=== PATIENT | male | born 1940 ===

== ENCOUNTER 2017-07-24 08:43 | Day surgery (SDC) | payer MEDICAID ==
[2017-07-11 12:10] VITALS: BMI 26.6
[~2017-07-24 08:43] MED LIST: Carbachol 0.01% IO ONE; Ciprofloxacin 0.3% OPTH SOLN OS SCH; Cyclopentolate 1% Opth (2 ml) OS SCH; Flurbiprofen 0.03% Opht SOLN OS SCH; Lactated Ringer's 500 ML IV ONE; Phenylephrine 2.5% Opht Soln OS SCH; Tropicamide 1% Opht SOLUTION OS SCH
[2017-07-24] MEDS ORDERED: Lactated Ringer's 500 ML IV ONE (09:40)
[2017-07-24] MEDS: Lidocaine 2% Inj (20ml) ONE ×2 (12:24→13:14)
[2017-07-24] MEDS: Tobramycin/Dexamethasone (Tobradex) Opth Sol (2.5 ml) ONE ×2 (12:25→13:20)
[2017-07-24] MEDS: Hyaluronidase Human, Recombi 150 U/ML VIAL ONE ×2 (12:25→13:14)
[2017-07-24] MEDS: Chondroitin/Hyaluronate Opth Syringe KIT (0.55 ml-0.5 ml) IO ONE ×2 (12:25→13:20)
[2017-07-24] MEDS: Tetracaine 0.5% Ophth (OR ONLY) ONE ×2 (12:26→13:20)
[2017-07-24] MEDS: Povidone Iodine Ophthalmic 5% Soln ONE ×2 (12:26→13:13)
[2017-07-24] MEDS: Tobramycin/Dexamethasone OPHT OINT ONE ×2 (12:27→13:20)
[2017-07-24] MEDS ORDERED: Lidocaine Hydrochloride 5 ML INJ ONE (12:57)
[2017-07-24] MEDS ORDERED: Propofol 10 mg/ml Inj (20 ML) ONE (12:57)
[2017-07-24 14:18] VITALS: O2SAT 98
[2017-07-24 14:29] VITALS: BP 171/76; PULSE 63; RESP 14; TEMP 98.1
--- NOTE | 2017-07-30 07:45 | OP ---
PROCEDURE DATE: 07/24/2017 PREOPERATIVE DIAGNOSIS: Mature cataract of the left eye. POSTOPERATIVE DIAGNOSIS: Mature cataract of the left eye. OPERATIVE PROCEDURE: Cataract extraction with implant and use of Trypan blue dye. ANESTHESIA TYPE: Local, standby. COMPLICATIONS: None. PROCEDURE: Local anesthesia was achieved using a mixture of 1% lidocaine and Amphadase. The patient was then prepped and draped in the usual sterile fashion for ophthalmic surgery. Betadine drops were placed into the eye. A lid speculum was used and a sideport incision was made using a 15 degree blade. Trypan Blue dye was used to stain the anterior capsule. Viscoelastic was used to fill the anterior chamber and a 2.7 millimeter slit blade was used to create a surgical opening. Additional viscoelastic was placed into the eye and a capsulorrhexis was performed. Hydrodissection and delineation were then carried out. Phacoemulsification of the nucleus was performed with ease and cortical cleanup was achieved without difficulty. The capsular bag was refilled using viscoelastic and a posterior chamber lens was inserted through the existing wound and placed into the capsular bag and easily centered. All viscoelastic was then aspirated from the eye and Miochol was instilled for good symmetric pupillary constriction. The sideport wound was hydrated as necessary and a good watertight closure was observed at the conclusion of the case. A TobraDex soaked collagen shield was then placed over the eye. The lid speculum was removed. TobraDex ointment was placed onto the eye and a patch and shield were placed. The patient tolerated the procedure well. Alvaro Marshall MD
== END 2017-07-24 14:35 | disposition home or self-care (01) ==
LOC: C.SDS 08:43
PROVIDERS: ATTEND Ophthalmology
DX: H26.8 Other specified cataract (principal); I10 Essential (primary) hypertension; N40.0 Benign prostatic hyperplasia without lower urinary tract symptoms; Z79.899 Other long term (current) drug therapy
CPT/HCPCS: 66984; J2704; J3470; J7120; V2632